=== PATIENT | female | born 1995 | race Caucasian/White ===

== ENCOUNTER 2022-04-03 09:58 | Outpatient (CLI) | payer BC | END 2022-04-03 09:59 | disposition home or self-care (01) | LOC: BICMRI 09:58 | PROVIDERS: ATTEND Obstetrics & Gynecology | DX: Z15.01 Genetic susceptibility to malignant neoplasm of breast (principal) | CPT/HCPCS: C8908 ==

== ENCOUNTER 2023-03-11 09:33 | Outpatient (CLI) | payer OTHER | END 2023-03-11 09:34 | disposition home or self-care (01) | LOC: BICMRI 09:33 | PROVIDERS: ATTEND Obstetrics & Gynecology | DX: Z15.01 Genetic susceptibility to malignant neoplasm of breast (principal) | CPT/HCPCS: A9577; C8908 ==